=== PATIENT | female | born 1955 | race Caucasian/White ===

== ENCOUNTER 2018-08-22 10:37 | Emergency (ER) | payer OTHER ==
[~2018-08-22] VITALS: Ht 162.6 cm; Wt 41.4 kg
[2018-08-22] MEDS ORDERED: BUME1TAB17 PO (10:42)
[2018-08-22] MEDS ORDERED: ACET-2247 PO (10:42)
[2018-08-22] MEDS ORDERED: KDUR20 PO (10:51)
[2018-08-22] MEDS ORDERED: DOCU250C91 PO (10:51)
[2018-08-22] MEDS ORDERED: CALC-877 PO (10:51)
[2018-08-22] MEDS ORDERED: ZOLP5 PO (10:51)
[2018-08-22] MEDS ORDERED: MELA3TAB66 PO (10:51)
[2018-08-22] MEDS ORDERED: GEMF600T5 PO (10:51)
[2018-08-22] MEDS ORDERED: VITAD1000 PO (10:51)
[2018-08-22] MEDS ORDERED: TRAM50TA4 PO (10:51)
[2018-08-22] MEDS ORDERED: OMEP20 PO (10:51)
[2018-08-22] MEDS ORDERED: ONDA4 PO (10:51)
[2018-08-22] MEDS ORDERED: AMYL1CAP63 PO (10:51)
[2018-08-22] MEDS ORDERED: OXYC5 PO (10:51)
[2018-08-22] MEDS ORDERED: FLUT16H NASAL (10:51)
[2018-08-22] MEDS ORDERED: METO50 PO (10:51)
[2018-08-22] MEDS ORDERED: SODI650T PO (10:51)
[2018-08-22 11:26] LABS: BASOPHILS % (AUTO) 1.2 % (0.0-2.0); EOSINOPHILS % (AUTO) 0.6 % (1.0-6.0); HEMATOCRIT 37.3 % (36-46); HEMOGLOBIN 11.9 g/dL (12.0-16.0); LYMPHOCYTES # (AUTO) 1.9 K/uL (1.0-4.8); LYMPHOCYTES % (AUTO) 20.4 % (22.0-44.0); MEAN CORPUSCULAR HEMOGLOBIN 27.6 pg (26.0-34.0); MEAN CORPUSCULAR HGB CONC 31.9 G/dL (31.0-37.0); MEAN CORPUSCULAR VOLUME 86 fL (80-100); MONOCYTES # (AUTO) 0.6 K/uL (0.1-1.0); NEUTROPHILS # (AUTO) 6.7 K/uL (1.8-7.7); NEUTROPHILS % (AUTO) 71.8 % (40.0-70.0); PLATELET COUNT (AUTO) 468 K/uL (150-450); RED BLOOD CELL COUNT(AUTO) 4.31 MIL/uL (4.00-5.20); RED CELL DISTRIBUTION WIDTH 18.6 % (11.5-14.5)
[2018-08-22] MEDS ORDERED: OxyCODONE HCL 5 MG IR TABLET PO ONE (11:30)
[2018-08-22 11:32] LABS: CALCIUM, TOTAL 8.1 mg/dL (8.8-10.5); CREATININE 1.98 mg/dL (0.60-1.30); POTASSIUM 4.5 mmol/L (3.5-5.1)
[2018-08-22 11:37] LABS: ALBUMIN 2.2 g/dL (3.4-5.0); BILIRUBIN,TOTAL 0.5 mg/dL (0.1-1.0); TOTAL PROTEIN, SERUM 6.4 g/dL (6.4-8.2)
[2018-08-22] MEDS ORDERED: SODIUM CHLORIDE 0.9% 1,000 ML IV ONE (11:45)
[2018-08-22 12:25] LABS: APPEARANCE,URINE CLOUDY (CLEAR); BILIRUBIN,URINE NEGATIVE (NEGATIVE); GLUCOSE, URINE (UA) NEGATIVE (NEGATIVE); KETONES,URINE NEGATIVE (NEGATIVE); LEUKOCYTE ESTERASE ,URINE LARGE (NEGATIVE); NITRATE,URINE NEGATIVE (NEGATIVE); OCCULT BLOOD,URINE MODERATE (NEGATIVE); PROTEIN,URINE NEGATIVE (NEGATIVE); UROBILINOGEN,URINE 0.2 mg/dL (<=1.0)
[2018-08-22 13:12] LABS: BACTERIA,URINE Moderate /HPF (None Seen); SQUAMOUS EPITHELIAL CELL,UR Few /LPF (None Seen); WBC,URINE 26-50 /HPF (0-5)
[2018-08-22 13:31] VITALS: BP 109/72
== END 2018-08-22 13:35 | disposition home or self-care (01) ==
LOC: EMS 10:39
DX: K52.9 Noninfective gastroenteritis and colitis, unspecified (principal); R79.89 Other specified abnormal findings of blood chemistry; I10 Essential (primary) hypertension; K21.9 Gastro-esophageal reflux disease without esophagitis; F17.210 Nicotine dependence, cigarettes, uncomplicated; Z88.1 Allergy status to other antibiotic agents; Z79.899 Other long term (current) drug therapy
CPT/HCPCS: 36415; 74176; 80053; 81001; 83690; 84484; 85025; 87077; 87086; 87186; 93005; 96360; 99284; J7030

== ENCOUNTER 2018-09-16 12:05 | Emergency (ER) | payer OTHER ==
[~2018-09-16] VITALS: Ht 162.6 cm; Wt 40.2 kg
[~2018-09-16 12:05] MED LIST: ACET-2247 PO; AMYL1CAP63 PO; BUME1TAB17 PO; CALC-877 PO; DOCU250C91 PO; FLUT16H NASAL; GEMF600T5 PO; KDUR20 PO; MELA3TAB66 PO; METO50 PO; OMEP20 PO; ONDA4 PO; OXYC5 PO; SODI650T PO; TRAM50TA4 PO; VITAD1000 PO; ZOLP5 PO
[2018-09-16] MEDS ORDERED: OxyCODONE HCL/ACETAMINOPHEN 5-325 MG TABLET PO ONE (13:30)
[2018-09-16] MEDS ORDERED: ONDANSETRON HCL 4 MG TABLET PO ONE (13:30)
[2018-09-16] MEDS ORDERED: LIDOCAINE/PRILOCAINE 2.5% 30 GM CREAM TP ONE (13:30)
[2018-09-16] MEDS ORDERED: LIDOCAINE 1% 10 ML VIAL INJ ONE (14:45)
[2018-09-16 16:24] VITALS: BP 110/71
== END 2018-09-16 16:28 | disposition home or self-care (01) ==
LOC: EMS 12:05
DX: S01.81XA Laceration without foreign body of other part of head, initial encounter (principal); I10 Essential (primary) hypertension; K21.9 Gastro-esophageal reflux disease without esophagitis; F17.210 Nicotine dependence, cigarettes, uncomplicated; Z88.1 Allergy status to other antibiotic agents; W01.198A Fall on same level from slipping, tripping and stumbling with subsequent striking against other object, initial encounter; Y93.89 Activity, other specified; Y92.89 Other specified places as the place of occurrence of the external cause; Y99.8 Other external cause status
CPT/HCPCS: 12013; 70450; 99284; J3490; Q0162

== ENCOUNTER 2018-10-20 15:32 | Emergency (ER) | payer OTHER ==
[~2018-10-20] VITALS: Ht 162.6 cm; Wt 45.5 kg
[~2018-10-20 15:32] MED LIST changes: -BUME1TAB17 PO; +BUME1TAB34 PO; +MAGOX PO
[2018-10-20] MEDS ORDERED: KETOROLAC TROMETHAMINE 30 MG/ML VIAL IM ONE (17:15)
[2018-10-20 17:50] VITALS: BP 114/79
== END 2018-10-20 17:55 | disposition home or self-care (01) ==
LOC: EMS 15:32
DX: N39.0 Urinary tract infection, site not specified (principal); I10 Essential (primary) hypertension; K21.9 Gastro-esophageal reflux disease without esophagitis; F17.210 Nicotine dependence, cigarettes, uncomplicated; Z88.1 Allergy status to other antibiotic agents; Z79.899 Other long term (current) drug therapy
CPT/HCPCS: 96372; 99283; J1885

== ENCOUNTER 2019-01-01 11:33 | Emergency (ER) | payer OTHER ==
[~2019-01-01] VITALS: Ht 162.6 cm; Wt 40.9 kg
[~2019-01-01 11:33] MED LIST changes: +CHOL100018 PO; -VITAD1000 PO
[2019-01-01 13:32] VITALS: BP 141/87
== END 2019-01-01 13:37 | disposition home or self-care (01) ==
LOC: EMS 11:34
DX: F43.20 Adjustment disorder, unspecified (principal); K21.9 Gastro-esophageal reflux disease without esophagitis; I10 Essential (primary) hypertension; G43.909 Migraine, unspecified, not intractable, without status migrainosus; F17.210 Nicotine dependence, cigarettes, uncomplicated; Z90.710 Acquired absence of both cervix and uterus; Z90.89 Acquired absence of other organs; Z86.73 Personal history of transient ischemic attack (TIA), and cerebral infarction without residual deficits; Z88.1 Allergy status to other antibiotic agents